=== PATIENT | female | born 1960 | race Caucasian/White ===

== ENCOUNTER 2018-04-20 23:28 | Emergency (ER) | payer MEDICAID ==
[2018-04-20 23:28] VITALS: BMI 29.2
[2018-04-20 23:46] VITALS: TEMP 98
--- NOTE | 2018-04-21 00:03 | ED PDOC ---
Arrival/HPI - General Historian: Patient, Family - History of Present Illness Narrative History of Present Illness (Text): 04/20/18 23:56 57 y o female past medical hx of HLD, chronic back pain, presents to the ED c/o L sided chest pain x 1 week, worsening in severity over the past 2 days. Denies any inciting factors or trauma. States it worsens with activity and with walking. Also reports associated shortness of breath and dyspnea on exertion. Localizes pain to L side of chest with associated radiation to L axilla. Rates pain as 6/10 currently, describes it as sharp. Admits to associated lightheadedness and nausea, but denies episodes of vomiting. Denies fever, chills, headache, sick contacts, recent illness, d/c, urinary complaints, LE edema or other symptoms. Past medical hx: HLD, chronic back pain Past surg hx: Tonsillectomy, appendectomy Allergies: NKDA Meds: Ibuprofen 600 mg prn for back pain, baby ASA, cholesterol med (pt doesn't recall name or dosage) Fam hx: denies hx of sudden cardiac or MIs Soc hx: denies smoking, EtOH, or illicit drug use; lives at home with 2 sons PMD: Dr. Hays <Lobo Potter - Last Filed: 04/21/18 01:05> <Rohan Hauser - Last Filed: 04/21/18 01:27> - General Chief Complaint: Chest Pain Time Seen by Provider: 04/20/18 23:33 Past Medical History - Infectious Disease Hx of Infectious Diseases: None - Tetanus Immunization Tetanus Immunization: Unknown - Past Medical History Past Medical History: No Previous - Musculoskeletal/Rheumatological Hx Musculoskeletal Disorders: Yes Hx Back Pain: Yes - Psychiatric Hx Depression: No Hx Emotional Abuse: No Hx Physical Abuse: No Hx Substance Use: No - Suicidal Assessment Feels Threatened In Home Enviroment: No <Lobo Potter - Last Filed: 04/21/18 01:05> Family/Social History Family/Social History: No Known Family HX Smoking Status: Never Smoked Hx Alcohol Use: No Hx Substance Use: No Hx Substance Use Treatment: No <Lobo Potter - Last Filed: 04/21/18 01:05> Allergies/Home Meds <Lobo Potter - Last Filed: 04/21/18 01:05> <Rohan Hauser - Last Filed: 04/21/18 01:27> Allergies/Adverse Reactions: Allergies No Known Allergies Allergy (Verified 09/21/13 22:56) Review of Systems - Review of Systems Constitutional: absent: Fatigue, Weight Change, Fevers, Night Sweats Eyes: absent: Vision Changes Respiratory: SOB. absent: Cough, Sputum, Wheezing Cardiovascular: Chest Pain, VALENTIN. absent: Palpitations, Edema, Calf Pain, Sync ope Gastrointestinal: Nausea. absent: Abdominal Pain, Stool Changes, Constipation, Diarrhea, Vomiting Musculoskeletal: Normal Skin: Normal Neurological: Normal <Lobo Potter - Last Filed: 04/21/18 01:05> Physical Exam Vital Signs Reviewed: Yes Vital Signs Temp Pulse Resp BP Pulse Ox 04/20/18 23:28 98.0 F 73 16 134/82 100 Temperature: Afebrile Blood Pressure: Normal Pulse: Regular Respiratory Rate: Normal Appearance: Positive for: Well-Appearing, Non-Toxic, Comfortable Pain Distress: Moderate Mental Status: Positive for: Alert and Oriented X 3 - Systems Exam Head: Present: Atraumatic, Normocephalic Pupils: Present: PERRL Extroacular Muscles: Present: EOMI Conjunctiva: Present: Normal Mouth: Present: Moist Mucous Membranes Neck: Present: Normal Range of Motion. No: JVD, Lymphadenopathy Respiratory/Chest: Present: Clear to Auscultation, Good Air Exchange. No: Respiratory Distress, Accessory Muscle Use, Wheezes, Rales, Rhonchi Cardiovascular: Present: Regular Rate and Rhythm, Normal S1, S2, Peripheal Pulses Present. No: Murmurs, Rub, Gallop Abdomen: Present: Normal Bowel Sounds. No: Tenderness, Distention, Rebound, Mass/Organomegaly Back: Present: Normal Inspection. No: Paraspinal Tenderness Upper Extremity: Present: Normal Inspection, Normal ROM, NORMAL PULSES, Neurovascularly Intact, Capillary Refill < 2s. No: Cyanosis, Edema, Swelling, Temperature Abnormalties Lower Extremity: Present: Normal Inspection, NORMAL PULSES, Normal ROM. No: Edema, CALF TENDERNESS Neurological: Present: GCS=15, CN II-XII Intact, Speech Normal, Motor Func Grossly Intact, Normal Sensory Function, Norm Deep Tendon Reflexes, Gait Normal, Normal 2Pt Descrimination Skin: Present: Warm, Dry, Normal Color. No: Rashes Psychiatric: Present: Alert, Oriented x 3, Normal Insight, Normal Concentration <Lobo Potter - Last Filed: 04/21/18 01:05> Vital Signs Temp Pulse Resp BP Pulse Ox 04/21/18 01:20 74 18 114/79 98 04/20/18 23:28 98.0 F 73 16 134/82 100 <Rohan Hauser - Last Filed: 04/21/18 01:27> Medical Decision Making ED Course and Treatment: 04/21/18 00:07 Pt presents with chest pain x 1 week worsening over the past 2 days in severity. R/o ACS as etiology. EKG NSR at 68 bpm, no acute St-T wave changes appreciated. Ordered CBC, CMP, coags, troponin. CXR ordered. Continue to monitor. Pt states she does not want any pain medication at this time. 04/21/18 01:05 Reassessed pt, states she is feeling much better, states chest pain has improved. S/p 325 mg ASA. Blood work-up negative. Troponin neg x1. CXR demonstrates no acute findings. Pt interested in going home at this time. Instructed to follow-up in 2-3 days after ER discharge with PMD Dr. Hays. Instructed to return to ED if her symptoms persist or worsen. All questions and concerns addressed with pt and pt's son at bedside, and both are agreeable to plan. - RAD Interpretation Radiology Orders: 04/20/18 23:54 CHEST PORTABLE [RAD] Stat <Lobo Potter - Last Filed: 04/21/18 01:05> ED Course and Treatment: Seen and examined with resident. 57 y/o F p/w chest pain x 1 week. On exam, reproducible chest tenderness in focal area. - Lab Interpretations Lab Results: 04/20/18 23:40 04/20/18 23:40 Lab Results 04/20/18 23:40: Sodium 139, Potassium 4.2, Chloride 106, Carbon Dioxide 27, [place] 10, BUN 18, Creatinine 0.8, Est GFR ( Amer) > 60, Est GFR (Non-Af Amer) > 60, Random Glucose 96, Calcium 9.4, Total Bilirubin 0.5, AST 31, ALT 31, Alkaline Phosphatase 74, Troponin I < 0.01, Total Protein 7.7, Albumin 4.3, Globulin 3.4, Albumin/Globulin Ratio 1.3 04/20/18 23:40: PT 11.3, INR 0.99, APTT 29.4 04/20/18 23:40: WBC 6.4, RBC 4.58, Hgb 12.6, Hct 38.1, MCV 83.2, MCH 27.5, MCHC 33.1, RDW 14.4, Plt Count 187, MPV 9.6, Gran % 33.6 L, Lymph % (Auto) 47.9 H, [place] % (Auto) 6.9 H, Eos % (Auto) 11.1 H, Baso % (Auto) 0.5, Gran # 2.16, Lymph # (Auto) 3.1, [place] # (Auto) 0.4, Eos # (Auto) 0.7, Baso # (Auto) 0.03 - RAD Interpretation Radiology Orders: 04/20/18 23:54 CHEST PORTABLE [RAD] Stat - Medication Orders Current Medication Orders: Discontinued Medications Aspirin (Aspirin) 325 mg PO STAT STA Stop: 04/21/18 00:09 Last Admin: 04/21/18 00:29 Dose: 325 mg <Rohan Hauser - Last Filed: 04/21/18 01:27> Disposition/Present on Arrival - Present on Arrival Any Indicators Present on Arrival: No History of DVT/PE: No History of Uncontrolled Diabetes: No Urinary Catheter: No History of Decub. Ulcer: No History Surgical Site Infection Following: None - Disposition Have Diagnosis and Disposition been Completed?: Yes Disposition Time: 01:03 Patient Plan: Discharge <Lobo Potter - Last Filed: 04/21/18 01:05> <Rohan Hauser - Last Filed: 04/21/18 01:27> - Disposition Diagnosis: Costochondral chest pain Disposition: HOME/ ROUTINE Condition: STABLE Discharge Instructions (ExitCare): Chest Pain (ED) Print Language: [place] Additional Instructions: Please follow-up with your primary care physician (Dr. Hays) within 2-3 days of discharge from the ER. Should symptoms recur or worsen, please call your primary care physician or report to your nearest emergency department. Referrals: Terry Hays MD [Family Provider] - Follow up with primary Forms: [employer] ([place])
[2018-04-21 00:09] LABS: BASO # 0.03 K/mm3 (0.0-2.0); BASO % 0.5 % (0.0-3.0); EOS # 0.7 (0.0-0.7); EOS % 11.1 % (1.5-5.0); GRAN # 2.16 (1.4-6.5); GRAN % 33.6 % (50.0-68.0); HEMOGLOBIN 12.6 g/dL (12.0-16.0); LYMPH # 3.1 (1.2-3.4); LYMPH % 47.9 % (22.0-35.0); MEAN CELL VOLUME 83.2 fl (80.0-105.0); MEAN CORPUSCULAR HEMOGLOBIN 27.5 pg (25.0-35.0); MEAN CORPUSCULAR HGB CONC 33.1 g/dl (31.0-37.0); MEAN PLATELET VOLUME 9.6 fl (7.0-11.0); MONO # 0.4 (0.1-0.6); MONO % 6.9 % (1.0-6.0); RBC 4.58 10^6/uL (3.5-6.1); RED CELL DISTRIBUTION WIDTH 14.4 % (11.5-14.5); WHITE BLOOD COUNT 6.4 10^3/uL (4.5-11.0)
[2018-04-21 00:11] LABS: INR 0.99; PARTIAL THROMBOPLASTIN TIME 29.4 Seconds (25.1-36.5); PROTHROMBIN TIME 11.3 SECONDS (9.4-12.5)
[2018-04-21 00:22] LABS: ALB/GLOB RATIO 1.3 (1.1-1.8); ALBUMIN 4.3 g/dL (3.0-4.8); ALT/SGPT 31 U/L (7-56); AST/SGOT 31 U/L (14-36); BLOOD UREA NITROGEN 18 mg/dL (7-21); CALCIUM 9.4 mg/dL (8.4-10.5); GFR NON-AFRICAN AMERICAN > 60
[2018-04-21 00:31] LABS: TROPONIN I < 0.01 ng/mL
[2018-04-21 01:23] VITALS: BP 114/79; PULSE 74; RESP 18; O2SAT 98
--- NOTE | 2018-04-21 09:13 | RAD ---
Date of service: 04/20/2018 HISTORY: chest pain COMPARISON: 09/21/2013 FINDINGS: LUNGS: No active pulmonary disease. PLEURA: No significant pleural effusion identified, no pneumothorax apparent. CARDIOVASCULAR: No aortic atherosclerotic calcification present. Normal cardiac size. No pulmonary vascular congestion. OSSEOUS STRUCTURES: No significant abnormalities. VISUALIZED UPPER ABDOMEN: Normal. OTHER FINDINGS: None. IMPRESSION: No active disease.
--- NOTE | 2018-04-21 19:15 | CARD ---
APPROVED REPORT Date of service: 04/20/2018 EKG Measurement Heart [id number] <Conclusion> Normal sinus rhythm Normal ECG
== END 2018-04-21 01:20 | disposition home or self-care (01) ==
LOC: ED 23:28
DX: R07.89 Other chest pain (principal); E78.5 Hyperlipidemia, unspecified